=== PATIENT | female | born 1955 | race Caucasian/White ===

== ENCOUNTER 2018-06-21 04:42 | Day surgery (SDC) | payer OTHER ==
[2018-06-21] MEDS ORDERED: LACTATED RINGERS 1,000 ML ONE (08:10)
[2018-06-21] MEDS ORDERED: MIDAZOLAM INJ 2 MG/2 ML VIAL ONE (08:52)
--- NOTE | 2018-06-21 09:49 | OP ---
DATE OF PROCEDURE: 06/21/18 PREOPERATIVE DIAGNOSIS: 1. History of numerous polyps in 2015 including serrated adenomas. POSTOPERATIVE DIAGNOSIS: 1. Colonic polyps. 2. Diverticulosis. PROCEDURE: 1. Colonoscopy plus polypectomy. SURGEON: Dany Steinberg MD. COMPLICATIONS: None apparent. BLOOD LOSS: None. MEDICATIONS: Monitored anesthesia care. DESCRIPTION OF PROCEDURE: Informed consent was obtained prior to sedation. The preprocedure cardiopulmonary assessment was satisfactory. The patient was placed in the left lateral decubitus position and was sedated. A digital rectal exam was unremarkable. The tip of the Olympus colonoscope was inserted in the rectum and guided over to the cecum. The cecum was identified by locating the ileocecal valve and appendiceal orifice. Prep was good. The mucosa of the cecum, ascending colon, hepatic flexure, transverse colon, splenic flexure, descending colon and sigmoid colon was closely examined. Direct and retroflexed views of the rectum were obtained. The patient has multiple colonic polyps. There was a 3 mm sessile polyp in the ascending colon that was removed with a cold snare and recovered. There were 3 transverse colon polyps that were 2 to 3 mm in size, sessile and removed with a cold snare and recovered. Finally, there was a larger transverse colon polyp. This had the appearance of a sessile serrated adenoma. It was about 1 cm in size and sessile. This was removed in 2 pieces with a hot snare and recovered. The sigmoid colon had a few scattered diverticula. Otherwise, the colonoscopy was unremarkable. RECOMMENDATIONS: Followup polyp pathology to determine timing for her next surveillance colonoscopy. #[id number] cc: Dr. Shelton Yuan, [facility]
[2018-06-21] MEDS ORDERED: PROPOFOL 200 MG/20 ML VIAL IV ONE (10:00)
[2018-06-21] MEDS ORDERED: SODIUM CHLORIDE 0.9% 50 ML VIAL INJ ONE (10:00)
[2018-06-21 10:36] VITALS: BP 122/72; TEMP 98; O2SAT 98
== END 2018-06-21 10:12 | disposition home or self-care (01) ==
LOC: AMB 04:42
PROVIDERS: ATTEND Internal Medicine Gastroenterology
DX: Z12.11 Encounter for screening for malignant neoplasm of colon (principal); D12.2 Benign neoplasm of ascending colon; D12.3 Benign neoplasm of transverse colon; K57.30 Diverticulosis of large intestine without perforation or abscess without bleeding; F17.210 Nicotine dependence, cigarettes, uncomplicated; Z86.010 Personal history of colon polyps; Z88.0 Allergy status to penicillin
CPT/HCPCS: 00812; 45385; A4216; J2250; J3490; J7120